=== PATIENT | male | born 1995 | race Hispanic/Latino ===

== ENCOUNTER 2019-02-09 07:00 | Day surgery (SDC) | payer BC ==
[2019-02-03 16:21] VITALS: BP 125/75
[2019-02-09] VITALS (14 sets, daily range): BP systolic 109–155; BP diastolic 63–77
[~2019-02-09] VITALS: Ht 185.4 cm; Wt 118.0 kg
[2019-02-09] MEDS ORDERED: CEFAZOLIN SODIUM 1 GM VIAL ONE (07:26)
[2019-02-09] MEDS ORDERED: METHYLENE BLUE 5 MG/ML AMP ONE (07:26)
[2019-02-09] MEDS ORDERED: GENTAMICIN SULFATE 80 MG/2 ML VIAL ONE (07:26)
[2019-02-09] MEDS ORDERED: BACITRACIN 50,000 UNIT VIAL ONE (07:27)
[2019-02-09] MEDS ORDERED: LACTATED RINGERS 1000ML 1,000 ML IV ONE (07:29)
[2019-02-09] MEDS ORDERED: PROPOFOL 10 MG/ML 20ML VIAL IV ONE (07:55)
[2019-02-09] MEDS ORDERED: FENTANYL CITRATE PF 50 MCG/1 ML 2ML VIAL ONE (07:55)
[2019-02-09] MEDS ORDERED: LIDOCAINE PF 2% 5ML ABBOJECT ONE (07:55)
[2019-02-09] MEDS ORDERED: MIDAZOLAM HCL 1 MG/ML 2ML VIAL ONE (07:59)
[2019-02-09] MEDS: CEFAZOLIN SODIUM 1 GM VIAL IVP SCH ×2 (08:00→08:20)
[2019-02-09] MEDS ORDERED: BUPIVACAINE/PF 0.25% 30ML VIAL IJ ONE (08:15)
[2019-02-09] MEDS ORDERED: LIDOCAINE 1%-EPI 1:100,000 20 ML VIAL IJ ONE (08:15)
[2019-02-09] MEDS ORDERED: KETOROLAC TROMETHAMINE 30MG/ML ONE (09:27)
== END 2019-02-09 10:34 | disposition home or self-care (01) ==
LOC: DAH 07:00
PROVIDERS: ATTEND Plastic Surgery
DX: R22.33 Localized swelling, mass and lump, upper limb, bilateral (principal); E66.9 Obesity, unspecified; Z68.34 Body mass index [BMI] 34.0-34.9, adult; Z88.8 Allergy status to other drugs, medicaments and biological substances; Z79.899 Other long term (current) drug therapy; Z83.3 Family history of diabetes mellitus; Z91.018 Allergy to other foods
CPT/HCPCS: 11402 ×2; 88305; A4215 ×2; A4221; A4222; A4223; A4570; A4606; A4663; A6206; G0168; J0690 ×2; J1580; J1885; J2001; J2250; J2704; J3010; J3490; J7040; J7120; Q9968